=== PATIENT | male | born 1995 | race Caucasian/White ===

== ENCOUNTER 2018-01-30 13:38 | Emergency (ER) | payer SELFPAY ==
[~2018-01-30] VITALS: Ht 182.9 cm; Wt 79.4 kg
--- NOTE | 2018-01-30 13:55 | NUR ---
Dr Briscoe at the bedside for MSE.
[2018-01-30 14:00] VITALS: BP 118/84
--- NOTE | 2018-01-30 14:01 | NUR ---
Patient discharged to home in stable conditon. Written and verbal after care instructions given. Patient verbalizes understanding of instructions.
== END 2018-01-30 14:01 | disposition home or self-care (01) ==
LOC: ER 13:40
DX: K64.8 Other hemorrhoids (principal); E11.9 Type 2 diabetes mellitus without complications
CPT/HCPCS: A4663